=== PATIENT | male | born 1980 | race Caucasian/White ===

== ENCOUNTER 2021-07-23 14:22 | Emergency (ER) | payer OTHER ==
[~2021-07-23] VITALS: Ht 175.3 cm; Wt 106.1 kg
[2021-07-23 14:40] VITALS: BP 139/109
[2021-07-23] MEDS ORDERED: KETOROLAC 30 MG/ML VIAL IM ONE (14:40)
--- NOTE | 2021-07-23 14:50 | NUR ---
PT TAKEN TO X RAY.
--- NOTE | 2021-07-23 14:50 | NUR ---
PT AMB TO BED 6.
[2021-07-23] MEDS ORDERED: ASPIRIN 325 MG TAB PO ONE (15:30)
--- NOTE | 2021-07-23 15:32 | NUR ---
40 Y/O M C/O RIB PAIN 10/10 S/P FALL ABOUT 1 HOUR AGO. PT FALL ON HIS CHEST. NKA PMH: ASTHMA, HTN
[2021-07-23 16:30] LABS: BASOPHILS # (AUTO) 0.1 K/uL (0.00-0.22); BASOPHILS % (AUTO) 0.7 % (0.0-2.0); EOSINOPHILS # (AUTO) 0.1 K/uL (0-0.4); EOSINOPHILS % (AUTO) 1.1 % (0.0-4.0); HEMATOCRIT 45.1 % (36-52); HEMOGLOBIN 15.7 g/dL (12.0-18.0); LYMPHOCYTES # (AUTO) 2.3 K/uL (2.0-11.5); LYMPHOCYTES % (AUTO) 23.9 % (20.5-51.1); MEAN CORPUSCULAR HEMOGLOBIN 31 pg (27-31); MEAN CORPUSCULAR HGB CONC 35 g/dL (33-37); MONOCYTES # (AUTO) 0.8 K/uL (0.8-1.0); MONOCYTES % (AUTO) 8.7 % (1.7-9.3); NEUTROPHILS # (AUTO) 6.3 K/uL (1.8-7.7); NEUTROPHILS % (AUTO) 65.6 % (42.2-75.2); PLATELET COUNT (AUTO) 266 K/uL (140-450); RED BLOOD CELL COUNT(AUTO) 5.12 MIL/uL (4.20-6.10); RED CELL DISTRIBUTION WIDTH 13.4 % (11.6-13.7); WHITE BLOOD COUNT (AUTO) 9.7 K/uL (4.8-10.8)
[2021-07-23 16:49] LABS: ALBUMIN 3.7 g/dL (3.4-5.0); ANION GAP 13.7 (8-16); CARBON DIOXIDE 27.1 mmol/L (21-32); CREATININE 1.1 mg/dL (0.6-1.3); POTASSIUM 3.8 mmol/L (3.5-5.1); TOTAL BILIRUBIN 0.4 mg/dL (0.0-1.0)
[2021-07-23] MEDS ORDERED: NAPR-54 PO (17:57)
[2021-07-23] MEDS ORDERED: CYCL-711 PO (17:57)
--- NOTE | 2021-07-23 19:23 | NUR ---
GAVE REPORT TO SAE SIU.
[2021-07-23 19:27] VITALS: BP 136/93
--- NOTE | 2021-07-23 19:28 | NUR ---
Patient discharged with v/s stable. Written and verbal after care instructions given and explained. Patient alert, oriented and verbalized understanding of instructions. Ambulatory with steady gait. All questions addressed prior to discharge. ID band removed. Patient advised to follow up with PMD. Rx of CYCLOBENZAPRIN HCI, NAPROXEN given.Opportunity to ask questions provided and answered.
--- NOTE | 2021-07-23 19:28 | NUR ---
Chart checked and completed. The patient's care was reviewed and supervised by Vanessa Lara, RN, RN.
== END 2021-07-23 19:28 | disposition home or self-care (01) ==
LOC: MED 14:22
DX: S29.9XXA Unspecified injury of thorax, initial encounter (principal); Z79.899 Other long term (current) drug therapy; Z98.890 Other specified postprocedural states; X58.XXXA Exposure to other specified factors, initial encounter; Y93.66 Activity, soccer; Y92.89 Other specified places as the place of occurrence of the external cause; Y99.8 Other external cause status
CPT/HCPCS: 36415; 71046; 80053; 83690; 84484; 85025; 93005; 96372; 99285; J1885

== ENCOUNTER 2021-10-23 19:22 | Emergency (ER) | payer OTHER ==
[~2021-10-23] VITALS: Ht 175.3 cm; Wt 104.3 kg
[~2021-10-23 19:22] MED LIST: CYCL-711 PO; NAPR-54 PO
[2021-10-23 19:55] VITALS: BP 171/102
--- NOTE | 2021-10-23 20:01 | NUR ---
Patient ambulated to bed 12 with his family.
[2021-10-23] MEDS ORDERED: NACL 0.9% 1,000 ML IV ONE (20:40)
[2021-10-23] MEDS ORDERED: MORPHINE SULFATE 4 MG/ML SYR IVP ONE (20:40)
--- NOTE | 2021-10-23 20:50 | NUR ---
40 yo m bib with c/c of 10/10 lower abd pain xthurday. +n/v. denies diarrhea.denies blood in stool. pt has a hx of diverticulitis, states this pain is similar to past exacerbations. pt states he took norco about 3hrs before checking into the hospital. hx:diverticulitis nka
--- NOTE | 2021-10-23 20:52 | NUR ---
Lonnie gann in [facility] - 10/23/21 at 2057 by CARLOS PT TAKEN TO CT
--- NOTE | 2021-10-23 21:02 | NUR ---
17 G ON RT UPPER ARM ESTABLISHED. BLOOD COLLECTED. MEDICATED PER ORDER. NS RUNNING, OPEN LINE. BLOOD TAKEN TO LAB.
--- NOTE | 2021-10-23 21:23 | NUR ---
pt taken to ct via rnav.
[2021-10-23 21:33] LABS: BASOPHILS % (AUTO) 0.2 % (0.0-2.0); EOSINOPHILS % (AUTO) 0.1 % (0.0-4.0); HEMATOCRIT 44.7 % (36-52); HEMOGLOBIN 15.2 g/dL (12.0-18.0); LYMPHOCYTES # (AUTO) 1.6 K/uL (2.0-11.5); LYMPHOCYTES % (AUTO) 8.7 % (20.5-51.1); MEAN CORPUSCULAR HEMOGLOBIN 30 pg (27-31); MEAN CORPUSCULAR HGB CONC 34 g/dL (33-37); MONOCYTES # (AUTO) 1.1 K/uL (0.8-1.0); MONOCYTES % (AUTO) 6.1 % (1.7-9.3); NEUTROPHILS # (AUTO) 15.8 K/uL (1.8-7.7); NEUTROPHILS % (AUTO) 84.9 % (42.2-75.2); PLATELET COUNT (AUTO) 286 K/uL (140-450); RED BLOOD CELL COUNT(AUTO) 5.08 MIL/uL (4.20-6.10); RED CELL DISTRIBUTION WIDTH 13.4 % (11.6-13.7); WHITE BLOOD COUNT (AUTO) 18.6 K/uL (4.8-10.8)
--- NOTE | 2021-10-23 21:49 | NUR ---
urine collected and taken to lab.
[2021-10-23 21:57] LABS: ANION GAP 12.6 (8-16); CARBON DIOXIDE 25.7 mmol/L (21-32); POTASSIUM 3.3 mmol/L (3.5-5.1); TOTAL BILIRUBIN 0.8 mg/dL (0.0-1.0)
[2021-10-23 22:00] LABS: APPEARANCE,URINE CLEAR (CLEAR); BILIRUBIN,URINE 1+ (NEGATIVE); BLOOD, URINE NEGATIVE (NEGATIVE); COLOR,URINE YELLOW (YELLOW); LEUKOCYTE ESTERASE ,URINE NEGATIVE (NEGATIVE); NITRITE, URINE NEGATIVE (NEGATIVE); PH,URINE 6.5 (5.0-9.0); UGLUCOSE NEGATIVE (NEGATIVE)
[2021-10-23] MEDS ORDERED: POTASSIUM CHLORIDE 10 MEQ TABER PO ONE (22:10)
[2021-10-23] MEDS ORDERED: AMOXIL/CLAVULANATE 875/125 MG 1 TAB PO ONE (22:10)
[2021-10-23] MEDS ORDERED: AMOX1TAB8 PO (22:10)
[2021-10-23] MEDS ORDERED: IBUP-2213 PO (22:12)
[2021-10-23] MEDS ORDERED: ACET-9527 PO (22:30)
[2021-10-23 22:40] VITALS: BP 142/90
--- NOTE | 2021-10-23 22:40 | NUR ---
Patient discharged with v/s stable. Written and verbal after care instructions given and explained. Patient alert, oriented and verbalized understanding of instructions. Ambulatory with steady gait. All questions addressed prior to discharge. ID band removed. Patient advised to follow up with PMD. Rx of amox-clav, ibuprofen, norco given. Patient educated on indication of medication including possible reaction and side effects. Opportunity to ask questions provided and answered.
== END 2021-10-23 22:40 | disposition home or self-care (01) ==
LOC: MED 19:22
DX: K57.92 Diverticulitis of intestine, part unspecified, without perforation or abscess without bleeding (principal); E87.6 Hypokalemia; I10 Essential (primary) hypertension; J45.909 Unspecified asthma, uncomplicated
CPT/HCPCS: 36415; 74176; 80053; 81003; 83690; 85025; 96361; 96374; 99284; J2270; J7030

== ENCOUNTER 2022-05-23 19:28 | Emergency (ER) | payer BC, OTHER ==
[~2022-05-23] VITALS: Ht 175.3 cm; Wt 99.8 kg
[~2022-05-23 19:28] MED LIST changes: +ACET-9527 PO; +AMOX1TAB8 PO; +IBUP-2213 PO
[2022-05-23 20:15] VITALS: BP 176/100
--- NOTE | 2022-05-23 20:19 | NUR ---
TO LOBBY A/W BED AMBULATORY
[2022-05-23] MEDS ORDERED: diazePAM 5 MG TAB PO ONE (23:00)
[2022-05-23] MEDS ORDERED: KETOROLAC 30 MG/ML VIAL IM ONE (23:00)
[2022-05-23 23:03] LABS: APPEARANCE,URINE CLEAR (CLEAR); BILIRUBIN,URINE NEGATIVE (NEGATIVE); BLOOD, URINE NEGATIVE (NEGATIVE); COLOR,URINE YELLOW (YELLOW); LEUKOCYTE ESTERASE ,URINE NEGATIVE (NEGATIVE); NITRITE, URINE NEGATIVE (NEGATIVE); UGLUCOSE NEGATIVE (NEGATIVE)
--- NOTE | 2022-05-23 23:19 | NUR ---
Patient lying in bed, A/Ox4, chest rise and fall symmetrical, no s/s of distress.
--- NOTE | 2022-05-23 23:24 | NUR ---
Patient to radiology.
--- NOTE | 2022-05-23 23:50 | NUR ---
Pt back from radiology.
[2022-05-23] MEDS ORDERED: NAPR-54 PO (23:51)
[2022-05-23] MEDS ORDERED: DIAZ5TAB6 PO (23:51)
--- NOTE | 2022-05-24 00:01 | NUR ---
Patient lying in bed, A/Ox4, chest rise and fall symmetrical, no c/o pain or s/s of distress.
[2022-05-24 00:16] VITALS: BP 151/85
== END 2022-05-24 00:16 | disposition home or self-care (01) ==
LOC: MED 19:28
DX: M54.50 Low back pain, unspecified (principal); J45.909 Unspecified asthma, uncomplicated; I10 Essential (primary) hypertension; Z79.899 Other long term (current) drug therapy; Z98.890 Other specified postprocedural states
CPT/HCPCS: 72110; 81003; 96372; 99285; J1885

== ENCOUNTER 2022-06-09 18:14 | Emergency (ER) | payer BC, OTHER ==
[~2022-06-09] VITALS: Ht 177.8 cm; Wt 86.2 kg
[~2022-06-09 18:14] MED LIST changes: +DIAZ5TAB6 PO
[2022-06-09 18:24] VITALS: BP 171/101
--- NOTE | 2022-06-09 18:55 | NUR ---
PT AMBULATED TO ROOM 7
--- NOTE | 2022-06-09 19:05 | NUR ---
MD BOCANEGRA AT BEDSIDE FOR EVALUATION
[2022-06-09] MEDS ORDERED: METOPROLOL 5 MG/5 ML VIAL IVP ONE (19:10)
[2022-06-09] MEDS ORDERED: ENALAPRILAT 2.5 MG/2 ML VIAL IVP ONE (19:10)
--- NOTE | 2022-06-09 19:20 | NUR ---
Patient lying in bed, A/Ox4, chest rise and fall symmetrical, no s/s of distress.
[2022-06-09 19:47] LABS: BASOPHILS % (AUTO) 0.7 % (0.0-2.0); EOSINOPHILS % (AUTO) 0.4 % (0.0-4.0); HEMATOCRIT 46.4 % (36-52); HEMOGLOBIN 15.9 g/dL (12.0-18.0); LYMPHOCYTES # (AUTO) 1.1 K/uL (2.0-11.5); LYMPHOCYTES % (AUTO) 16.1 % (20.5-51.1); MEAN CORPUSCULAR HEMOGLOBIN 30 pg (27-31); MEAN CORPUSCULAR HGB CONC 34 g/dL (33-37); MEAN CORPUSCULAR VOLUME 88.8 fL (80-94); MONOCYTES # (AUTO) 1.2 K/uL (0.8-1.0); MONOCYTES % (AUTO) 17.3 % (1.7-9.3); NEUTROPHILS # (AUTO) 4.5 K/uL (1.8-7.7); NEUTROPHILS % (AUTO) 65.5 % (42.2-75.2); PLATELET COUNT (AUTO) 233 K/uL (140-450); RED BLOOD CELL COUNT(AUTO) 5.22 MIL/uL (4.20-6.10); RED CELL DISTRIBUTION WIDTH 14.2 % (11.6-13.7); WHITE BLOOD COUNT (AUTO) 6.9 K/uL (4.8-10.8)
[2022-06-09 20:18] LABS: ALBUMIN 3.5 g/dL (3.4-5.0); ANION GAP 14.2 (8-16); ASPARTATE AMINOTRANSFERASE 22 U/L (15-37); CARBON DIOXIDE 26.4 mmol/L (21-32); CHLORIDE 103 mmol/L (98-107); CREATININE 1.4 mg/dL (0.6-1.3); GFR ARICAN-AMERICAN 71 mL/min (>90); GLUCOSE 122 mg/dL (74-106); POTASSIUM 3.6 mmol/L (3.5-5.1); SODIUM SERUM 140 mmol/L (136-145); TOTAL BILIRUBIN 0.4 mg/dL (0.0-1.0); UREA NITROGEN, BLOOD 21 mg/dL (7-18)
--- NOTE | 2022-06-09 20:54 | NUR ---
Dr. Morgan verbally informed of patient's recent BP after lopressor administration, BP 117/77, HR 83. Dr. Morgan verbalized understanding. Dr. Morgan asked ok to not give Vasotec, Dr. Morgan verbalized not to give Vasotec.
[2022-06-09] MEDS ORDERED: AMLO2.5T PO (21:14)
[2022-06-09] MEDS ORDERED: HYDR-2853 PO (21:14)
[2022-06-09 21:20] VITALS: BP 117/77
--- NOTE | 2022-06-09 21:20 | NUR ---
D/C BY .Patient discharged with v/s stable. Written and verbal after care instructions given and explained. Patient alert, oriented and verbalized understanding of instructions. Ambulatory with steady gait. All questions addressed prior to discharge. ID band removed. Patient advised to follow up with PMD. Rx of NORVASC, LISINOPRIL given. Patient educated on indication of medication including possible reaction and side effects. Opportunity to ask questions provided and answered.
== END 2022-06-09 21:20 | disposition home or self-care (01) ==
LOC: MED 18:14
DX: I10 Essential (primary) hypertension (principal); J45.909 Unspecified asthma, uncomplicated; Z79.899 Other long term (current) drug therapy
CPT/HCPCS: 36415; 80053; 84484; 85025; 93005; 96374; 99284; J3490

== ENCOUNTER 2024-03-05 15:59 | Emergency (ER) | payer BC, OTHER ==
[~2024-03-05] VITALS: Ht 175.3 cm; Wt 106.6 kg
[~2024-03-05 15:59] MED LIST changes: +AMLO2.5T PO; +HYDR-2853 PO; +NAPR-337 PO; -NAPR-54 PO
[2024-03-05 16:20] VITALS: BP 148/100; PULSE 73; RESP 18; TEMP 97.8; O2SAT 96
[2024-03-05] MEDS ORDERED: ACET-8905 PO (16:53)
[2024-03-05] MEDS ORDERED: IBUP-2213 PO (16:53)
[2024-03-05] MEDS ORDERED: METR-435 PO (16:53)
[2024-03-05] MEDS ORDERED: CIPR500T4 PO (16:53)
[2024-03-05] MEDS: KETOROLAC 60 MG/2 ML VIAL IM ONE (17:49)
== END 2024-03-05 17:51 | disposition home or self-care (01) ==
LOC: MED 15:59
DX: R10.32 Left lower quadrant pain (principal); I10 Essential (primary) hypertension; J45.909 Unspecified asthma, uncomplicated; Z79.899 Other long term (current) drug therapy; Z98.890 Other specified postprocedural states
CPT/HCPCS: 96372; 99283; J1885